=== PATIENT | male | born 1950 | race Asian ===

== ENCOUNTER 2023-02-07 09:36 | Inpatient (IN) | payer MEDICARE ==
[~2023-02-07] VITALS: Ht 177.8 cm; Wt 90.3 kg
[2023-02-07] VITALS (16 sets, daily range): BP systolic 73–129; PULSE 77–104; RESP 11–22; TEMP 97.2–98.6; O2SAT 68–100
[2023-02-07] MEDS ORDERED: MIDODRINE HCL 5 MG TABLET (PROAMATINE) PO ONE (10:15)
[2023-02-07 10:23] LABS: ABG O2 SAT% ESTIMATE 99.9 % (94.0-100.0); BLOOD GAS HCO3 19.8 mmol/L (21.0-27.0); BLOOD GAS PCO2 26.8 mmHg (32.0-45.0); BLOOD GAS PH 7.486 (7.350-7.450); BLOOD GAS PO2 519.4 mmHg (75.0-100.0)
[2023-02-07 10:26] LABS: MEAN CORPUSCULAR HEMOGLOBIN 24 pg (27-31); MEAN CORPUSCULAR HGB CONC 29 % (32-36); MEAN CORPUSCULAR VOLUME 82 fL (79.0-98.0); PLATELET COUNT (AUTO) 255 K/uL (130-430); RED BLOOD CELL COUNT(AUTO) 3.78 MIL/uL (4.2-6.2); RED CELL DISTRIBUTION WIDTH 18.2 % (9.0-15.0); WHITE BLOOD COUNT (AUTO) 29.8 K/uL (4.8-10.8)
[2023-02-07 10:32] LABS: ANION GAP 20 (5-15); CALCIUM 8.8 mg/dL (8.4-11.0); CARBON DIOXIDE 24 mmol/L (23-29); CHLORIDE 92 mmol/L (98-107); CREATININE 4.85 mg/dL (0.55-1.30); GLUCOSE 176 mg/dL (74-106); SODIUM SERUM 136 mmol/L (136-145); UREA NITROGEN, BLOOD 27 mg/dL (8-21)
[2023-02-07 10:39] LABS: ALANINE AMINOTRANSFERASE 11 U/L (12-78); ALBUMIN 2.4 g/dL (3.4-4.8); ASPARTATE AMINOTRANSFERASE 44 U/L (10-37); CREATINE KINASE, TOTAL 265 U/L (39-308); TOTAL BILIRUBIN 0.7 mg/dL (0.0-1.0); TOTAL PROTEIN, SERUM 6.7 g/dL (6.4-8.3)
[2023-02-07 11:10] LABS: ANISOCYTOSIS 1+; BAND % (MANUAL) 11 % (0-6); BASOPHILS % (MANUAL) 0 % (0-2); EOSINOPHILS % (MANUAL) 0 % (0-7); HYPOCHROMASIA SLIGHT; LYMPHOCYTES % (MANUAL) 3 % (20-46); METAMYELOCYTES % 1 % (0-0); MONOCYTES % (MANUAL) 4 % (0-11); PLATELET ESTIMATE ADEQUATE (ADEQUATE)
[2023-02-07] MEDS ORDERED: PIPERACILLIN/TAZO 3.375 GM in NS 50 ML IV ONE (11:15)
[2023-02-07] MEDS ORDERED: PIPERACILLIN/TAZOBACTAM 3.375 GM/VIAL (ZOSYN) IV ONE ×2 (11:26→11:52)
[2023-02-07] MEDS ORDERED: POTASSIUM CHLORIDE 20 MEQ TAB.PRT.SR PO PRN (11:45)
[2023-02-07] MEDS ORDERED: MUPIROCIN 2% TOPICAL OINTMENT 22 GM NS PRN (11:45)
[2023-02-07] MEDS ORDERED: MORPHINE 2 MG/ML INJ. SYRINGE IVP PRN (11:45)
[2023-02-07] MEDS ORDERED: ACETAMINOPHEN 325 MG TABLET PO PRN (11:45)
[2023-02-07] MEDS ORDERED: LORazepam 2 MG/ML VIAL IVP PRN (11:45)
[2023-02-07] MEDS ORDERED: ALBUTEROL SULFATE 0.083% 2.5 MG/3 ML VIAL.NEB INH PRN (11:45)
[2023-02-07] MEDS ORDERED: DOCUSATE SODIUM 100 MG CAPSULE PO PRN (11:45)
[2023-02-07] MEDS ORDERED: ONDANSETRON HCL 4 MG/2 ML VIAL IVP PRN (11:45)
[2023-02-07] MEDS ORDERED: MAGNESIUM SULFATE 50 ML IV PRN (11:45)
[2023-02-07] MEDS ORDERED: VANCOMYCIN HCL 1,250 MG in NS 250 ML IV ONE (13:00)
[2023-02-07] MEDS: MIDODRINE HCL 5 MG TABLET (PROAMATINE) PO SCH (15:03)
[2023-02-07] MEDS ORDERED: CINA30TA3 PO (15:05)
[2023-02-07] MEDS ORDERED: APIX5TAB PO (15:05)
[2023-02-07] MEDS ORDERED: SEVE800T8 PO (15:05)
[2023-02-07] MEDS ORDERED: ATOR-1 PO (15:05)
[2023-02-07] MEDS ORDERED: LIDO700A30 TP (15:05)
[2023-02-07] MEDS ORDERED: ERGO1250 PO (15:05)
[2023-02-07] MEDS ORDERED: CLOP75TA32 PO (15:05)
[2023-02-07] MEDS ORDERED: CARV6.2554 PO (15:05)
[2023-02-07] MEDS ORDERED: HUM10VIA SUBCUT (15:05)
[2023-02-07] MEDS ORDERED: OXYIR5 PO (15:05)
[2023-02-07] MEDS ORDERED: ALLO100T PO (15:05)
[2023-02-07] MEDS ORDERED: [UNRECOGNIZED DRUG - CODE] (15:05)
[2023-02-07] MEDS ORDERED: COLL30OI2 TP (15:05)
[2023-02-07] MEDS ORDERED: GABA-529 PO (15:05)
[2023-02-07] MEDS ORDERED: NOREPINEPHRINE 4 MG/4 ML VIAL IV ONE ×2 (15:22→23:43)
[2023-02-07] MEDS ORDERED: PANT20TA2 PO (15:23)
[2023-02-07] MEDS ORDERED: CYAN100010 PO (15:23)
[2023-02-07] MEDS: NOREPINEPHRINE BITARTRATE 4 MG in NS 246 ML IV PRN ×2 (15:31→23:59)
[2023-02-07] MEDS ORDERED: ALBU10.7 INH (15:36)
[2023-02-07] MEDS ORDERED: ASPI-1393 PO (17:40)
[2023-02-07] MEDS: PIPERACILLIN/TAZO 2.25G/DEX-IS 50 ML IV SCH (18:25)
[2023-02-07 18:46] LABS: INR 1.5 (0.80-1.20); PROTHROMBIN TIME 15.5 SECS (9.5-12.5)
[2023-02-07] MEDS: HEPARIN SODIUM,PORCINE 5,000 UNITS/ML VIAL SUBCUT SCH (21:00)
[2023-02-08] VITALS (29 sets, daily range): BP systolic 93–133; PULSE 74–107; RESP 5–28; TEMP 96.8–98.6; O2SAT 96–100
[2023-02-08] MEDS: MORPHINE 2 MG/ML INJ. SYRINGE IVP PRN ×2 (00:07→14:58)
[2023-02-08 00:09] LABS: INFLUENZA TYPE A negative (NEGATIVE); INFLUENZA TYPE B NEGATIVE (NEGATIVE)
[2023-02-08] MEDS: PIPERACILLIN/TAZO 2.25G/DEX-IS 50 ML IV SCH ×5 (00:10→23:43)
[2023-02-08] MEDS: NOREPINEPHRINE BITARTRATE 4 MG in NS 246 ML IV PRN ×3 (04:50→18:42)
[2023-02-08] MEDS ORDERED: NOREPINEPHRINE 4 MG/4 ML VIAL IV ONE (05:30)
[2023-02-08 05:49] LABS: BASOPHILS # (AUTO) 0.1 K/uL (0.0-0.2); BASOPHILS % (AUTO) 0.4 % (0.0-2.0); EOSINOPHILS % (AUTO) 0.1 % (0.0-4.0); HEMATOCRIT 33.2 % (36-54); HEMOGLOBIN 9.6 g/dL (14.0-18.0); LYMPHOCYTES # (AUTO) 0.4 K/uL (1.0-5.5); LYMPHOCYTES % (AUTO) 2.2 % (20.5-51.5); MEAN CORPUSCULAR HEMOGLOBIN 24 pg (27-31); MEAN CORPUSCULAR HGB CONC 29 % (32-36); MEAN CORPUSCULAR VOLUME 82 fL (79.0-98.0); MONOCYTES # (AUTO) 1.1 K/uL (0.0-1.0); MONOCYTES % (AUTO) 5.5 % (1.7-9.3); NEUTROPHILS # (AUTO) 18.3 K/uL (1.8-7.7); NEUTROPHILS % (AUTO) 91.8 % (40.0-70.0); PLATELET COUNT (AUTO) 249 K/uL (130-430); RED BLOOD CELL COUNT(AUTO) 4.05 MIL/uL (4.2-6.2); RED CELL DISTRIBUTION WIDTH 18.5 % (9.0-15.0); WHITE BLOOD COUNT (AUTO) 19.9 K/uL (4.8-10.8)
[2023-02-08 06:02] LABS: ALANINE AMINOTRANSFERASE 182 U/L (12-78); ALBUMIN 2.1 g/dL (3.4-4.8); ANION GAP 13 (5-15); ASPARTATE AMINOTRANSFERASE 187 U/L (10-37); CALCIUM 8.9 mg/dL (8.4-11.0); CARBON DIOXIDE 29 mmol/L (23-29); CHLORIDE 94 mmol/L (98-107); CREATININE 4.02 mg/dL (0.55-1.30); GLUCOSE 157 mg/dL (74-106); PHOSPHORUS 4.8 mg/dL (2.7-4.5); POTASSIUM 4.7 mmol/L (3.5-5.1); SODIUM SERUM 136 mmol/L (136-145); TOTAL BILIRUBIN 0.7 mg/dL (0.0-1.0); TOTAL PROTEIN, SERUM 6.2 g/dL (6.4-8.3); UREA NITROGEN, BLOOD 27 mg/dL (8-21); VANCOMYCIN,RANDOM 12.9 ug/mL
[2023-02-08] MEDS: HEPARIN SODIUM,PORCINE 5,000 UNITS/ML VIAL SUBCUT SCH ×2 (09:18→21:19)
[2023-02-08] MEDS ORDERED: DEXTROSE 50% JECT 50 ML DISP.SYRIN IVP PRN (10:30)
[2023-02-08] MEDS ORDERED: NALOXONE HCL 0.4 MG/ML AMP (NARCAN) IVP PRN (11:45)
[2023-02-08] MEDS ORDERED: VANCOMYCIN HCL 1,000 MG in NS 250 ML IV ONE (13:00)
[2023-02-08] MEDS: SEVELAMER CARBONATE 800 MG TABLET PO SCH ×2 (13:23→17:51)
[2023-02-08] MEDS: GABAPENTIN 100 MG CAPSULE PO SCH ×2 (14:58→21:17)
[2023-02-08] MEDS: INSULIN LISPRO SLIDING SCALE 100 UNITS/ML, 3 ML VIAL (humaLOG) SUBCUT PRN ×2 (17:49→21:31)
[2023-02-08] MEDS ORDERED: APIXABAN PO SCH (21:00)
[2023-02-08] MEDS: CINACALCET HCL 30 MG TABLET PO SCH (21:17)
[2023-02-08] MEDS: ATORVASTATIN 20 MG TABLET PO SCH (21:17)
[2023-02-08] MEDS: CARVEDILOL 6.25 MG TABLET (COREG) PO SCH (21:17)
[2023-02-09] VITALS (25 sets, daily range): BP systolic 84–125; PULSE 74–105; RESP 12–24; TEMP 97.5–98.6; O2SAT 91–100
[2023-02-09] MEDS: NOREPINEPHRINE BITARTRATE 4 MG in NS 246 ML IV PRN ×2 (01:22→07:12)
[2023-02-09 05:37] LABS: BASOPHILS # (AUTO) 0.2 K/uL (0.0-0.2); BASOPHILS % (AUTO) 1.3 % (0.0-2.0); EOSINOPHILS # (AUTO) 0.1 K/uL (0.0-0.4); EOSINOPHILS % (AUTO) 0.5 % (0.0-4.0); HEMATOCRIT 31.7 % (36-54); HEMOGLOBIN 9.2 g/dL (14.0-18.0); LYMPHOCYTES # (AUTO) 0.5 K/uL (1.0-5.5); LYMPHOCYTES % (AUTO) 3.1 % (20.5-51.5); MEAN CORPUSCULAR HEMOGLOBIN 24 pg (27-31); MEAN CORPUSCULAR HGB CONC 29 % (32-36); MEAN CORPUSCULAR VOLUME 81 fL (79.0-98.0); MONOCYTES # (AUTO) 1.3 K/uL (0.0-1.0); MONOCYTES % (AUTO) 7.3 % (1.7-9.3); NEUTROPHILS # (AUTO) 15.1 K/uL (1.8-7.7); NEUTROPHILS % (AUTO) 87.8 % (40.0-70.0); PLATELET COUNT (AUTO) 232 K/uL (130-430); WHITE BLOOD COUNT (AUTO) 17.2 K/uL (4.8-10.8)
[2023-02-09 05:47] LABS: ANION GAP 14 (5-15); CALCIUM 8.5 mg/dL (8.4-11.0); CARBON DIOXIDE 28 mmol/L (23-29); CHLORIDE 96 mmol/L (98-107); CREATININE 5.17 mg/dL (0.55-1.30); GLUCOSE 161 mg/dL (74-106); POTASSIUM 4.9 mmol/L (3.5-5.1); SODIUM SERUM 138 mmol/L (136-145); UREA NITROGEN, BLOOD 45 mg/dL (8-21)
[2023-02-09 06:03] LABS: INR 1.2 (0.80-1.20); PROTHROMBIN TIME 12.6 SECS (9.5-12.5)
[2023-02-09 06:06] LABS: ALANINE AMINOTRANSFERASE 122 U/L (12-78); ASPARTATE AMINOTRANSFERASE 80 U/L (10-37); CHOLESTEROL 63 mg/dL (<200); HDL CHOLESTEROL 18 mg/dL (>45); TOTAL BILIRUBIN 0.6 mg/dL (0.0-1.0); TRIGLYCERIDES 121 mg/dL (30-150); VANCOMYCIN,RANDOM 22.4 ug/mL
[2023-02-09] MEDS: PIPERACILLIN/TAZO 2.25G/DEX-IS 50 ML IV SCH ×4 (06:10→23:42)
[2023-02-09] MEDS ORDERED: NOREPINEPHRINE BITARTRATE 8 MG in NS 246 ML IV PRN (08:15)
[2023-02-09 08:33] LABS: PHOSPHORUS 4.7 mg/dL (2.7-4.5); URIC ACID 4.4 mg/dL (2.4-7.0)
[2023-02-09] MEDS: SEVELAMER CARBONATE 800 MG TABLET PO SCH ×3 (09:15→17:44)
[2023-02-09] MEDS: ALLOPURINOL 100 MG TABLET (ZYLOPRIM) PO SCH (09:16)
[2023-02-09] MEDS: ASPIRIN 81 MG TABLET(ECOTRIN) PO SCH (09:16)
[2023-02-09] MEDS: PANTOPRAZOLE SODIUM 40 MG TAB PO SCH (09:16)
[2023-02-09] MEDS: GABAPENTIN 100 MG CAPSULE PO SCH ×3 (09:16→20:30)
[2023-02-09] MEDS: HYDROcodone/ACETAMIN 5-325 MG TAB (NORCO/ VICODIN) PO PRN ×3 (09:17→17:45)
[2023-02-09] MEDS: CARVEDILOL 6.25 MG TABLET (COREG) PO SCH ×2 (09:32→20:29)
[2023-02-09] MEDS: CLOPIDOGREL BISULFATE 75 MG TABLET PO SCH (09:32)
[2023-02-09] MEDS: HEPARIN SODIUM,PORCINE 5,000 UNITS/ML VIAL SUBCUT SCH ×2 (09:34→20:28)
[2023-02-09] MEDS: NOREPINEPHRINE BITARTRATE 8 MG in NS 242 ML IV PRN ×2 (10:16→17:57)
[2023-02-09] MEDS: ACETAMINOPHEN 325 MG TABLET PO PRN ×2 (12:30→17:45)
[2023-02-09] MEDS: ATORVASTATIN 20 MG TABLET PO SCH (20:28)
[2023-02-09] MEDS: CINACALCET HCL 30 MG TABLET PO SCH (20:28)
[2023-02-10] VITALS (26 sets, daily range): BP systolic 92–126; PULSE 72–98; RESP 11–21; TEMP 97–98.3; O2SAT 96–100
[2023-02-10] MEDS: NOREPINEPHRINE BITARTRATE 8 MG in NS 242 ML IV PRN ×3 (02:29→21:06)
[2023-02-10] MEDS: PIPERACILLIN/TAZO 2.25G/DEX-IS 50 ML IV SCH ×3 (05:43→19:07)
[2023-02-10 05:57] LABS: BASOPHILS # (AUTO) 0.1 K/uL (0.0-0.2); BASOPHILS % (AUTO) 0.4 % (0.0-2.0); EOSINOPHILS # (AUTO) 0.1 K/uL (0.0-0.4); EOSINOPHILS % (AUTO) 0.4 % (0.0-4.0); HEMATOCRIT 33.5 % (36-54); HEMOGLOBIN 9.7 g/dL (14.0-18.0); LYMPHOCYTES # (AUTO) 0.7 K/uL (1.0-5.5); LYMPHOCYTES % (AUTO) 3.9 % (20.5-51.5); MEAN CORPUSCULAR HEMOGLOBIN 24 pg (27-31); MEAN CORPUSCULAR HGB CONC 29 % (32-36); MEAN CORPUSCULAR VOLUME 82 fL (79.0-98.0); MONOCYTES # (AUTO) 1.4 K/uL (0.0-1.0); NEUTROPHILS # (AUTO) 15.1 K/uL (1.8-7.7); NEUTROPHILS % (AUTO) 87.3 % (40.0-70.0); PLATELET COUNT (AUTO) 200 K/uL (130-430); RED BLOOD CELL COUNT(AUTO) 4.09 MIL/uL (4.2-6.2); RED CELL DISTRIBUTION WIDTH 18.6 % (9.0-15.0); WHITE BLOOD COUNT (AUTO) 17.3 K/uL (4.8-10.8)
[2023-02-10 06:17] LABS: ANION GAP 15 (5-15); CALCIUM 8.3 mg/dL (8.4-11.0); CARBON DIOXIDE 25 mmol/L (23-29); CHLORIDE 98 mmol/L (98-107); CREATININE 4.52 mg/dL (0.55-1.30); GLUCOSE 156 mg/dL (74-106); POTASSIUM 4.6 mmol/L (3.5-5.1); SODIUM SERUM 138 mmol/L (136-145); UREA NITROGEN, BLOOD 36 mg/dL (8-21)
[2023-02-10 06:34] LABS: ALANINE AMINOTRANSFERASE 92 U/L (12-78); ALBUMIN 1.9 g/dL (3.4-4.8); ASPARTATE AMINOTRANSFERASE 48 U/L (10-37); TOTAL BILIRUBIN 0.6 mg/dL (0.0-1.0); TOTAL PROTEIN, SERUM 6.3 g/dL (6.4-8.3); VANCOMYCIN,RANDOM 16.7 ug/mL
[2023-02-10] MEDS: SEVELAMER CARBONATE 800 MG TABLET PO SCH ×3 (08:30→19:06)
[2023-02-10] MEDS: ASPIRIN 81 MG TABLET(ECOTRIN) PO SCH (08:30)
[2023-02-10] MEDS: PANTOPRAZOLE SODIUM 40 MG TAB PO SCH (08:31)
[2023-02-10] MEDS: ALLOPURINOL 100 MG TABLET (ZYLOPRIM) PO SCH (08:31)
[2023-02-10] MEDS: GABAPENTIN 100 MG CAPSULE PO SCH ×3 (08:31→20:59)
[2023-02-10] MEDS: CLOPIDOGREL BISULFATE 75 MG TABLET PO SCH (08:31)
[2023-02-10] MEDS: CARVEDILOL 6.25 MG TABLET (COREG) PO SCH ×2 (08:32→20:49)
[2023-02-10] MEDS: HEPARIN SODIUM,PORCINE 5,000 UNITS/ML VIAL SUBCUT SCH ×2 (08:33→21:01)
[2023-02-10] MEDS ORDERED: BENZOCAINE/MENTHOL 1 EACH LOZENGE MM PRN (08:45)
[2023-02-10] MEDS: ACETAMINOPHEN 500 MG TABLET PO PRN ×2 (12:28→19:06)
[2023-02-10] MEDS: INSULIN LISPRO SLIDING SCALE 100 UNITS/ML, 3 ML VIAL (humaLOG) SUBCUT PRN ×2 (12:50→21:07)
[2023-02-10] MEDS ORDERED: VANCOMYCIN HCL 750 MG in NS 250 ML IV ONE (13:00)
[2023-02-10] MEDS ORDERED: DAPTOmycin 350 MG in NS 50 ML IV SCH (16:00)
[2023-02-10] MEDS: CINACALCET HCL 30 MG TABLET PO SCH (20:59)
[2023-02-10] MEDS: ATORVASTATIN 20 MG TABLET PO SCH (21:00)
[2023-02-11] VITALS (7 sets, daily range): BP systolic 111–124; PULSE 78–93; RESP 11–24; TEMP 97–97.3; O2SAT 98–100
[2023-02-11] MEDS: PIPERACILLIN/TAZO 2.25G/DEX-IS 50 ML IV SCH ×2 (00:11→05:33)
[2023-02-11] MEDS: ACETAMINOPHEN 500 MG TABLET PO PRN (05:55)
[2023-02-11 06:01] LABS: BASOPHILS # (AUTO) 0.1 K/uL (0.0-0.2); BASOPHILS % (AUTO) 0.3 % (0.0-2.0); EOSINOPHILS # (AUTO) 0.2 K/uL (0.0-0.4); EOSINOPHILS % (AUTO) 1.1 % (0.0-4.0); HEMATOCRIT 32.6 % (36-54); HEMOGLOBIN 9.5 g/dL (14.0-18.0); MEAN CORPUSCULAR HEMOGLOBIN 24 pg (27-31); MEAN CORPUSCULAR HGB CONC 29 % (32-36); MEAN CORPUSCULAR VOLUME 82 fL (79.0-98.0); MONOCYTES # (AUTO) 1.6 K/uL (0.0-1.0); MONOCYTES % (AUTO) 8.5 % (1.7-9.3); NEUTROPHILS # (AUTO) 16.3 K/uL (1.8-7.7); NEUTROPHILS % (AUTO) 85.1 % (40.0-70.0); PLATELET COUNT (AUTO) 174 K/uL (130-430); RED CELL DISTRIBUTION WIDTH 18.5 % (9.0-15.0); WHITE BLOOD COUNT (AUTO) 19.2 K/uL (4.8-10.8)
[2023-02-11 06:38] LABS: ANION GAP 11 (5-15); CALCIUM 8.5 mg/dL (8.4-11.0); CARBON DIOXIDE 27 mmol/L (23-29); CHLORIDE 100 mmol/L (98-107); CREATININE 4.12 mg/dL (0.55-1.30); GLUCOSE 160 mg/dL (74-106); POTASSIUM 4.2 mmol/L (3.5-5.1); SODIUM SERUM 138 mmol/L (136-145); UREA NITROGEN, BLOOD 34 mg/dL (8-21)
== END 2023-02-11 06:55 | disposition short-term general hospital (02) | DRG 871 ==
LOC: SED 09:36 → SMU 11:35 → SIC 16:36
PROVIDERS: ADMIT Family Medicine; ATTEND Family Medicine
PROC: 5A1D70Z Performance of Urinary Filtration, Intermittent, Less than 6 Hours Per Day (ICD-10-PCS; principal; 2023-02-07)
PROC: 5A09357 Assistance with Respiratory Ventilation, Less than 24 Consecutive Hours, Continuous Positive Airway Pressure (ICD-10-PCS; 2023-02-07)
PROC: 05HY33Z Insertion of Infusion Device into Upper Vein, Percutaneous Approach (ICD-10-PCS; 2023-02-08)
PROC: B54MZZA Ultrasonography of Right Upper Extremity Veins, Guidance (ICD-10-PCS; 2023-02-08)
PROC: 5A1D70Z Performance of Urinary Filtration, Intermittent, Less than 6 Hours Per Day (ICD-10-PCS; 2023-02-09)
PROC: 5A1D70Z Performance of Urinary Filtration, Intermittent, Less than 6 Hours Per Day (ICD-10-PCS; 2023-02-10)
DX: A41.9 Sepsis, unspecified organism (principal); E43 Unspecified severe protein-calorie malnutrition; G92.8 Other toxic encephalopathy; J18.9 Pneumonia, unspecified organism; J96.01 Acute respiratory failure with hypoxia; R65.21 Severe sepsis with septic shock; N18.6 End stage renal disease; I13.2 Hypertensive heart and chronic kidney disease with heart failure and with stage 5 chronic kidney disease, or end stage renal disease; G47.30 Sleep apnea, unspecified; I25.10 Atherosclerotic heart disease of native coronary artery without angina pectoris; I48.0 Paroxysmal atrial fibrillation; J44.9 Chronic obstructive pulmonary disease, unspecified; D63.8 Anemia in other chronic diseases classified elsewhere; E83.59 Other disorders of calcium metabolism; I87.8 Other specified disorders of veins; Y83.8 Other surgical procedures as the cause of abnormal reaction of the patient, or of later complication, without mention of misadventure at the time of the procedure; Z20.822 Contact with and (suspected) exposure to COVID-19; I50.9 Heart failure, unspecified; E11.22 Type 2 diabetes mellitus with diabetic chronic kidney disease; R74.01 Elevation of levels of liver transaminase levels; Z88.2 Allergy status to sulfonamides; Z88.8 Allergy status to other drugs, medicaments and biological substances; Z79.899 Other long term (current) drug therapy; Z79.82 Long term (current) use of aspirin; Z79.01 Long term (current) use of anticoagulants; Z68.28 Body mass index [BMI] 28.0-28.9, adult; Z79.4 Long term (current) use of insulin; Z86.73 Personal history of transient ischemic attack (TIA), and cerebral infarction without residual deficits; Z89.422 Acquired absence of other left toe(s); Z95.5 Presence of coronary angioplasty implant and graft; Z99.2 Dependence on renal dialysis; Y92.89 Other specified places as the place of occurrence of the external cause
CPT/HCPCS: 36415; 36600; 70450-TC; 71045; 76376; 80048; 80053; 80061; 80202; 82550; 82803; 82962; 83037; 83605; 83735; 83880; 83970; 84100; 84484; 84550; 85007; 85025; 85027; 85610-TC; 85651-TC; 87040; 87070-TC; 87081; 87186-TC; 90935; 90937; 93005; 93306; 94660; 94760; 96365; 96368; 99291; J0878; J1644; J2270; J2543; J3370; J7050

== ENCOUNTER 2023-03-18 00:42 | Emergency (ER) | payer MEDICARE ==
[~2023-03-18] VITALS: Ht 177.8 cm; Wt 87.5 kg
[2023-03-18 00:42] VITALS: BP_SYST 86; PULSE 52; RESP 10; TEMP 95.6; O2SAT 68
[~2023-03-18 00:42] MED LIST: ALBU10.7 INH; ALLO100T PO; APIX5TAB PO; ASPI-1393 PO; ATOR-1 PO; CARV6.2554 PO; CINA30TA3 PO; CLOP75TA32 PO; COLL30OI2 TP; CYAN100010 PO; ERGO1250 PO; GABA-529 PO; HUM10VIA SUBCUT; LIDO700A30 TP; OXYIR5 PO; PANT20TA2 PO; SEVE800T8 PO; [UNRECOGNIZED DRUG - CODE]
[2023-03-18] MEDS ORDERED: ETOMIDATE 20 MG/ 10 ML VIAL (AMIDATE) IVP ONE ×2 (00:43→04:00)
[2023-03-18] MEDS ORDERED: SUCCINYLCHOLINE CHLORIDE 20 MG/ML(QUELICIN) IVP ONE ×2 (00:43→04:00)
[2023-03-18] MEDS ORDERED: SODIUM BICARBONATE 8.4% JECT 50 MEQ/50 ML SYRINGE IVP ONE (00:43)
[2023-03-18] MEDS ORDERED: EPINEPHrine JECT 0.1 MG/ML SYR IVP ONE (00:43)
[2023-03-18] MEDS ORDERED: NOREPINEPHRINE 4 MG/4 ML VIAL IV ONE (00:52)
[2023-03-18] MEDS ORDERED: MIDAZOLAM IN NACL,ISO-OSMOT/PF 100 ML IV ONE (01:10)
[2023-03-18 01:12] VITALS: BP_SYST 127; PULSE 85
[2023-03-18 02:29] LABS: BASOPHILS # (AUTO) 0.1 K/uL (0.0-0.2); BASOPHILS % (AUTO) 0.6 % (0.0-2.0); EOSINOPHILS # (AUTO) 0.3 K/uL (0.0-0.4); EOSINOPHILS % (AUTO) 1.4 % (0.0-4.0); HEMATOCRIT 31.9 % (36-54); HEMOGLOBIN 8.5 g/dL (14.0-18.0); LYMPHOCYTES # (AUTO) 9.1 K/uL (1.0-5.5); LYMPHOCYTES % (AUTO) 47.4 % (20.5-51.5); MEAN CORPUSCULAR HEMOGLOBIN 26 pg (27-31); MEAN CORPUSCULAR HGB CONC 27 % (32-36); MEAN CORPUSCULAR VOLUME 96 fL (79.0-98.0); MONOCYTES # (AUTO) 1.7 K/uL (0.0-1.0); MONOCYTES % (AUTO) 8.8 % (1.7-9.3); NEUTROPHILS # (AUTO) 8.1 K/uL (1.8-7.7); NEUTROPHILS % (AUTO) 41.8 % (40.0-70.0); PLATELET COUNT (AUTO) 152 K/uL (130-430); RED BLOOD CELL COUNT(AUTO) 3.33 MIL/uL (4.2-6.2); RED CELL DISTRIBUTION WIDTH 23.8 % (9.0-15.0); WHITE BLOOD COUNT (AUTO) 19.3 K/uL (4.8-10.8)
[2023-03-18 02:34] LABS: ALANINE AMINOTRANSFERASE 19 U/L (12-78); ANION GAP 21 (5-15); ASPARTATE AMINOTRANSFERASE 43 U/L (10-37); CARBON DIOXIDE 17 mmol/L (23-29); CHLORIDE 99 mmol/L (98-107); CREATININE 4.98 mg/dL (0.55-1.30); GLUCOSE 311 mg/dL (74-106); POTASSIUM 4.3 mmol/L (3.5-5.1); SODIUM SERUM 137 mmol/L (136-145); TOTAL BILIRUBIN 0.5 mg/dL (0.0-1.0); TOTAL PROTEIN, SERUM 6.4 g/dL (6.4-8.3); UREA NITROGEN, BLOOD 31 mg/dL (8-21)
[2023-03-18] MEDS ORDERED: NOREPINEPHRINE BITARTRATE 4 MG in NS 246 ML IV ONE (04:00)
== END 2023-03-18 04:11 ==
LOC: SED 00:42
DX: I46.9 Cardiac arrest, cause unspecified (principal); E11.9 Type 2 diabetes mellitus without complications; Z88.2 Allergy status to sulfonamides; Z88.6 Allergy status to analgesic agent; Z79.899 Other long term (current) drug therapy
CPT/HCPCS: 99291; 94002; 92950; 31500; 96374; 71045; 96375; 80053; 85025; 84484; 36415; 94640; 83605; 93005; J0171; J3490; J0330; 99285